=== PATIENT | male | born 1985 | race Caucasian/White ===

== ENCOUNTER → 2019-09-19 06:34 | Day surgery (SDC) | payer OTHER ==
[~2019-09-19 06:34] MED LIST: Acetaminophen TAB* 325 MG PO PRN; Buffered Lidocaine 1% SYRIN* 1 ML/SYRINGE INTRADERM ONE; HYDROmorphone INJ1* 1 MG/ML SYRINGE IV PRN; Ketorolac INJ* 30 MG/ML 1 ML VIAL ONE; Lactated Ringers 1000 ML Bag* 1,000 ML IV SCH; Lidocaine 1% w EPI 1:200,000* SDV 30 ML VIAL ONE; Midazolam* 1 MG/ML 2 ML VIAL (2 MG) ONE; PROCHLORPERAZINE INJ 5 MG/ML 2 ML VIAL IV PRN; Propofol* 10 MG/ML 20 ML BTL ONE; Ropivacaine 0.2% * 2 MG/ML VIAL ONE; ceFAZolin 2 GM PREMIX in ORs 2 GM/50 ML BAG ONE; fentaNYL* 50 MCG/ML 2 ML VIAL (100 MCG VIAL) ONE; oxyCODONE/Acetamin 5/325 MG* TAB ONE; oxyCODONE/Acetamin 5/325 MG* TAB PO PRN
[2019-09-19 12:20] VITALS: BP 137/68
--- NOTE | 2019-09-26 11:11 | OP ---
DATE OF OPERATION: 09/19/19 - [facility] DATE OF : 87 SURGEON: Giovanni Ruggiero MD EXCAVATION LABORER: None available. PRE-OP DIAGNOSES: Ankylosis, fat pad impingement plica. POST-OP DIAGNOSES: Ankylosis, fat pad impingement plica. OPERATIVE PROCEDURE: Left knee arthroscopy with synovectomy, lysis of adhesions , removal of plica, and partial lateral meniscectomy, medial chondroplasty. COMPLICATIONS: None. ESTIMATED BLOOD LOSS: Minimal. OPERATIVE INDICATIONS: Blake Munguia is a 34-year-old male who had persistent patellofemoral type knee pain. He has failed conservative management, we have been treating him for over a year with physical therapy, antiinflammatories, ice , heat, we even tried a trial of injection. He had a catch and some mechanical symptoms. It was tender about the fat pad. After extensive discussion of the risks and benefits of operative versus nonoperative treatment, he is elected to proceed with surgical treatment. Risks included but not limited to, bleeding; infection; damage to nerves, vessels, surrounding structure; wound nonhealing; persistent pain, need for surgery; scarring, stiffness; incomplete relief of symptoms; risks of anesthesia. DESCRIPTION OF PROCEDURE: The patient was greeted in the preoperative area by the attending surgeon. Corrected extremity was marked and consent was confirmed. Initially, the patient was supposed to present for the right knee arthroscopy, but he had a large abrasion. Decision was made to not treat the right side because of risk of infection. The patient did have history of bilateral knee. This has been documented multiple times, therefore we changed the consent to the left side with the patient's permission. So, the left side was correctly marked. Consent was confirmed. The notes were adjusted to reflect the left knee. After the knee was marked, he was brought back to the operating suite, placed in supine position on the operating table, underwent general anesthesia with LMA intubation, after which he was appropriately positioned in the bed. A lateral post was positioned. An unsterile tourniquet was placed high on the proximal thigh. The leg was then prepped and draped in the usual sterile fashion beginning with chlorhexidine soap, scrub, and alcohol wipe and a final prep of ChloraPrep. After appropriate surgical pause indicating side, site, procedure, and administration of antibiotics, the knee was intraarticularly injected with 1% lidocaine with epi. The anterolateral portal was made sharply with 11 blade. The scope was introduced into the joint. Joint was examined. There was abundant synovitis present and a large anterior fat pad. There was plica that was present. The anteromedial portal was made in an outside-in fashion. The shaver as well as electrocautery device was used to remove the abundant thick plica. There was evidence of small area of grade 2 changes in the medial femoral condyle from where this has been rubbing. This was debrided back using the shaver and once the chondroplasty was completed, attention was directed to medial compartment. There were grade 0 changes. The meniscus was intact. ACL and PCL were intact. There was lot amount of synovitis as well laterally and a plica that was removed using the shaver as well as electrocautery device. Lateral compartment was examined. There were grade 0 changes in the lateral femoral condyle and lateral plateau, but there was some unstable fraying about the root of the meniscus, which was debrided back. Patellofemoral joint was examined. There were grade 0 changes. There was no chondrosis present but there was abundant synovitis around the patella, which was removed. Once this was complete and hemostasis was maintained, the wounds were copiously irrigated with sterile saline. Final images were obtained. The portals were closed with 3-0 nylon. The wound was superficially and intraarticularly injected with 0.2% ropivacaine. Sterile dressings were applied and a Cryo/Cuff. The patient was awoken from anesthesia and transferred to the PACU in stable condition. POSTOPERATIVE PLAN: He will be weightbearing as tolerated. Range of motion as tolerated. Discharged on pain medications. DVT prophylaxis was considered but deferred due to no previous personal or family history. I will see the patient back in 10 to 14 days. [id number]/[facility] #: [id number] TAMICA
== END | disposition home or self-care (01) ==
LOC: OR 06:34
PROVIDERS: ATTEND Orthopaedic Surgery
DX: M22.2X2 Patellofemoral disorders, left knee (principal); M67.52 Plica syndrome, left knee; F32.9 Major depressive disorder, single episode, unspecified
CPT/HCPCS: A9270-GY; J0690; J1885; J2001; J2250; J2704; J2795; J3010